=== PATIENT | male | born 1990 | race Two or more races ===

== ENCOUNTER 2020-06-17 23:08 | Emergency (ER) | payer SELFPAY ==
[~2020-06-17] VITALS: Ht 175.3 cm; Wt 63.9 kg
[2020-06-17] MEDS ORDERED: diphenhydrAMINE 50 MG/ML VIAL IVP ONE (23:15)
[2020-06-17] MEDS ORDERED: MIDAZOLAM HCL/PF 5 MG/5 ML VIAL. IV ONE (23:15)
[2020-06-17] MEDS ORDERED: HALOPERIDOL LACTATE 5 MG/ML VIAL. IVP ONE (23:15)
[2020-06-17] MEDS ORDERED: IV NORMAL SALINE 1000ML BAG 1,000 ML IV SCH (23:15)
--- NOTE | 2020-06-17 23:18 | PHYS DOC ---
General Adult EDM: Chief Complaint: DRUG ABUSE HPI: HPI: 29-year-old male unknown past medical history, presents the ED brought by EMS, combative towards ems, after sister called 911 with concern for meth use for the past 3 days. Police officers who spoke [place]ian were unable to verbally de- escalate patient. Pt very paranoid, denies drug allergies. Was medicated for his and staff safety and medical evaluation once clinically sober and no longer intoxicated. EMS reports heart rate in 150s. Sister present in ed and reports pt lives with his brother who called 911, is concerned pt is using "crystal." Pt is very paranoid and hearing voices. H/o similar presentation but has never requir ed ed visit. No h/o underlying psych illness or admission. Pt has not voiced any SI/HI complaints, no h/o SI/HI. dumper bulk system services use for this pt encounter. Review of Systems: Review of Systems: ROS: unobtainable due to intoxication Heart Score: Risk Factors: Risk Factors: DM, Current or recent (<one month) smoker, HTN, HLP, family history of CAD, obesity. Risk Scores: Score 0 - 3: 2.5% MACE over next 6 weeks - Discharge Home Score 4 - 6: 20.3% MACE over next 6 weeks - Admit for Clinical Observation Score 7 - 10: 72.7% MACE over next 6 weeks - Early Invasive Strategies Physical Exam: PE: Constitutional: unable to verbally desescalate, thin HENT: Normocephalic, atraumatic, no signs of trauma Eyes: PERRLA (2mm), EOMI, conjunctiva normal, no discharge. Neck: Normal range of motion, supple, Cardiovascular: S1/2 present, regular rhythm, tachycardic Lungs & Thorax: Speaking in full sentences, bilateral equal chest rise, no tachypnea or increased work of breathing Abdomen: soft, no tenderness, Skin: Warm, dry, no erythema, no rash, superficial abrasions to both ankles/no lacerations Extremities: No tenderness, no cyanosis, no edema Neurologic: Alert, moving all 4 extremities Psychologic: very paranoid, asking for his family, starts crying, EKG: EKG: Sinus tachycardia at 115 bpm, right axis deviation, right bundle branch block present, QRS 162, QTC 600, possible hyperacute T waves in inferior lateral leads with pr depression (pericarditis?), no ST segment depressions. Radiology/Procedures: Radiology/Procedures: [] Course & Med Decision Making: Course & Med Decision Making Pertinent Labs and Imaging studies reviewed. (See chart for details) Concern for polysubstance abuse/methamphetamine intoxication, requiring medication for patient safety. Potassium is 3.1 and replaced in ED. Creatinine is 1.4. Upon sober reevaluation with patient's brother at bedside, patient denies any SI or HI states "I have too much to live for." Brother also does not feel patient is a danger to himself or others and is concerned about patient substance abuse. PAT team assessed patient regarding this to provide supportive services. Will dc home with outpt referrals. Strict ED return precautions were given for suicidal ideations, homicidal ideations, psychosis or danger to self or others. Encouraged urgent outpatient follow-up with PMD and psychiatry/drug rehab. Life-threatening processes were considered but are low suspicion at this time, given history and physical exam. Pt was educated on all prescription medications and adverse effects. All patient's questions were answered and pt was stable at time of discharge. Life/limb-threatening differential includes but is not limited to, end organ damage/sepsis, trauma/abuse/neglect, neurologic deficit, alcohol/drug ingestion, toxidrome, suicidal/homicidal ideations plans or attempts, psychosis or mental illness resulting in self neglect and inability to care for self. I spoken with the patient and her caregivers. I explained the patient's condition, diagnoses and treatment plan based on the information available to me at this time. I have answered the patient and her caregiver's questions and addressed any concerns. The patient and her caregivers have a good understanding of patient's diagnosis, condition and treatment plan as can be expected at this point. Vital signs have been stable. Patient's condition is stable and appropriate for discharge from the emergency department. Patient will pursue further outpatient evaluation with primary care physician or other designated or consulting physician as outlined in the discharge instructions. The patient and/or caregivers are agreeable to this plan of care and follow-up instructions have been explained in detail. The patient and/or caregivers have received these instructions in written form and have expressed an understanding of the discharge instructions. The patient and/or caregivers are aware that any significant change of condition or worsening of symptoms should prompt immediate return to this or the closest emergency department or call to 911. Cristofer Disclaimer: Cristofer Disclaimer: This electronic medical record was generated, in whole or in part, using a voice recognition dictation system. Departure Departure Impression: Primary Impression: Polysubstance abuse Additional Impressions: Agitation requiring sedation protocol Renal insufficiency Disposition: 01 DC HOME SELF CARE/HOMELESS Condition: STABLE Referrals: GRACE BURLESON MD FOLLOW UP WITH FAMILY MEDICINE: Family Medicine Address: [address] [facility] [facility] [place] [address] Patient Instructions: Methamphetamine Abuse, Complications Additional Instructions: FOLLOW UP WITH PSYCHIATRY: Dr. Jesus Carrillo Psychiatry Specialist [address], [place] [address] [facility] [address], [place] [address] 24-hour crisis line: [phone] EMERGENCY DEPARTMENT GENERAL DISCHARGE INSTRUCTIONS Thank you for coming to [facility] Emergency Department (ED) today and trusting us with you care. We trust that you had a positive experience in our Emergency Department. If you wish to speak to the department management, you may call the Director at [phone]. YOUR FOLLOW UP INSTRUCTIONS ARE FOLLOWS: 1. Do you have a private Doctor? If you do not have a private doctor, please ask for a resource list of physicians or clinics that may be able to assist you with follow up care. 2. The Emergency Physicain has interpreted your x-rays. The X-Ray specialist will also review them. If there is a change in the findings, you will be notified in 48 hours when at all possible. 3. A lab test or culture has been done, your results will be reviewed and you will be notified if you need a change in treatment. ADDITIONAL INSTRUCTIONS AND INFORMATION: 1. Your care today has been supervised by a physician who is specially trained in emergency care. Many problems require more than one evaluation for a complete diagnosis and treatment. We recommend that you schedule your follow up appointment as recommended to ensure complete treatment of you illness or injury. If you are unable to obtain follow up care and continue to have a problem, or if your condition worsens, we recommend that you return to the ED. 2. We are not able to safely determine your condition over the phone nor are we able to give sound medical advice over the phone. For these safety reasons, if you call for medical advice we will ask you to come to the ED for further evaluation. 3. If you have any questions regarding these discharge instructions please call the ED at [phone]. SAFETY INFORMATION: In the interest of safety, wellness, and injury prevention; we encourage you to wear your sealbelt, if you smoke; quite smoking, and we encourage family to use a protective helmet for bicycling and other sporting events that present an increased risk for head injury. IF YOUR SYMPTOMS WORSEN OR NEW SYMPTOMS DEVELOP, OR YOU HAVE CONCERNS ABOUT YOUR CONDITION; OR IF YOUR CONDITION WORSENS WHILE YOU ARE WAITING FOR YOUR FOLLOW UP APPOINTMENT; EITHER CONTACT YOUR PRIMARY CARE DOCTOR, THE PHYSICIAN WHOSE NAME AND NUMBER YOU WERE GIVEN, OR RETURN TO THE ED IMMEDIATELY. RAINE BURGOS DO Jun 17, 2020 23:18
[2020-06-17 23:27] LABS: BASO % 0 % (0-3); EOS % 0 % (0-3); HEMOGLOBIN 16.2 g/dL (13.0-17.5); LYMPH # 1.7 x10^3/uL (1.0-4.8); LYMPH % 18 % (24-48); MEAN CORPUSCULAR HEMOGLOBIN 35 pg (25-35); MEAN CORPUSCULAR HGB CONC 35 g/dL (31-37); MEAN CORPUSCULAR VOLUME 98 fL (79-100); MONO # 0.8 x10^3/uL (0.0-1.1); MONO % 8 % (0-9); NEUT # 7.2 x10^3/uL (1.8-7.7); NEUT % 74 % (31-73); PLATELET COUNT 306 x10^3/uL (140-400); RED BLOOD COUNT 4.69 x10^6/uL (4.30-5.70); RED CELL DISTRIBUTION WIDTH 12.8 % (11.5-14.5); WHITE BLOOD COUNT 9.8 x10^3/uL (4.0-11.0)
[2020-06-17 23:34] LABS: CREATININE 1.4 mg/dL (0.7-1.3); GFR 60.8; POTASSIUM 3.1 mmol/L (3.5-5.1)
[2020-06-17 23:39] LABS: ACETAMIN < 2.0 mcg/ml (10-30); ETHANOL < 10 mg/dL (0-10); SALIC < 2.8 mg/dL (2.8-20.0)
[2020-06-18 00:45] LABS: BARBITURATES NEG (NEG); BENZODIAZEPINES POS (NEG); CANNABINOIDS POS (NEG); COCAINE NEG (NEG); METHADONE NEG (NEG); OPIATES NEG (NEG); PHENCYCLIDINE NEG (NEG)
[2020-06-18 00:50] LABS: AMPHETAMINE/METHAMPHETAMINE POS (NEG)
[2020-06-18] MEDS ORDERED: IV NORMAL SALINE 1000ML BAG 1,000 ML IV ONE (01:00)
[2020-06-18] MEDS ORDERED: POTASSIUM CHLORIDE 20 MEQ TABLET.ER. PO ONE (01:30)
[2020-06-18 04:58] VITALS: BP 158/107
== END 2020-06-18 06:20 | disposition home or self-care (01) ==
LOC: ER 23:08
DX: F19.10 Other psychoactive substance abuse, uncomplicated (principal); F15.10 Other stimulant abuse, uncomplicated; N28.9 Disorder of kidney and ureter, unspecified; R45.1 Restlessness and agitation; F60.0 Paranoid personality disorder
CPT/HCPCS: 36415; 80048; 80307; 80329; 82550; 85025; 93005; 96361; 96374; 96375; 99285; G0480; J1200; J2250; J7030